=== PATIENT | female | born 1955 | race African-American/Black ===

== ENCOUNTER 2018-03-14 12:55 | Day surgery (SDC) | payer BC ==
[2018-03-14] MEDS ORDERED: FENTAnyl 50 MCG/ML VIAL (16:03)
[2018-03-14] MEDS ORDERED: MIDAZOLAM 1 MG/ML 2 ML INJ ×2 (16:04)
[2018-03-14] MEDS ORDERED: MEPERIDINE 50 MG INJ (16:04)
== END 2018-03-14 18:18 | disposition home or self-care (01) ==
LOC: GIL 12:55
DX: K64.1 Second degree hemorrhoids (principal); K64.4 Residual hemorrhoidal skin tags; D50.9 Iron deficiency anemia, unspecified; Z80.0 Family history of malignant neoplasm of digestive organs
CPT/HCPCS: 45378